=== PATIENT | female | born 1985 | race African-American/Black ===

== ENCOUNTER 2022-05-18 06:46 | Observation (INO) | payer OTHER ==
[~2022-05-18] VITALS: Ht 165.1 cm; Wt 100.7 kg
[2022-05-18] MEDS ORDERED: LACTATED RINGERS 1,000 ML IV SCH (08:30)
[2022-05-18] MEDS ORDERED: TERBUTALINE SULFATE 1MG/ML VIAL SUBCUT SCH (08:30)
[2022-05-18] MEDS ORDERED: PNV1TABL50 MT (10:09)
== END 2022-05-18 10:25 | disposition home or self-care (01) ==
LOC: 8 EST LDRP 06:46
PROVIDERS: ADMIT Obstetrics & Gynecology; ATTEND Obstetrics & Gynecology
DX: O62.9 Abnormality of forces of labor, unspecified (principal); O09.523 Supervision of elderly multigravida, third trimester; Z3A.36 36 weeks gestation of pregnancy
CPT/HCPCS: 59025; 96360; 96372; G0378; J3105; 96361; 99281

== ENCOUNTER 2022-05-21 08:57 | Observation (INO) | payer OTHER ==
[~2022-05-21] VITALS: Ht 165.1 cm; Wt 101.2 kg
[~2022-05-21 08:57] MED LIST: PNV1TABL50 MT
[2022-05-21] MEDS ORDERED: LACTATED RINGERS 1,000 ML IV SCH (10:30)
[2022-05-21 11:19] LABS: CLARITY URINE CLEAR (CLEAR); COLOR URINE YELLOW (YELLOW); KETONES URINE NEGATIVE (NEGATIVE); LEUKOCYTE ESTERASE URINE NEGATIVE (NEGATIVE); NITRITE URINE NEGATIVE (NEGATIVE); OCCULT BLOOD URINE NEGATIVE (NEGATIVE); PH URINE 7.5 (4.5-8.0); PROTEIN URINE NEGATIVE (NEGATIVE); SPECIFIC GRAVITY URINE 1.011 (1.005-1.030)
[2022-05-26] MEDS ORDERED: IBUP-2030 MT (09:52)
== END 2022-05-21 13:30 | disposition home or self-care (01) ==
LOC: 8 EST LDRP 08:57
PROVIDERS: ADMIT Obstetrics & Gynecology; ATTEND Obstetrics & Gynecology
DX: O62.9 Abnormality of forces of labor, unspecified (principal); O36.8130 Decreased fetal movements, third trimester, not applicable or unspecified; O09.523 Supervision of elderly multigravida, third trimester; Z3A.38 38 weeks gestation of pregnancy
CPT/HCPCS: 59025; 76805; 76818; 81003; 96360; 96361; G0378; 99281; J7120